=== PATIENT | male | born 1950 | race African-American/Black ===

== ENCOUNTER 2017-02-16 16:00 | Emergency (ER) | payer OTHER ==
[~2017-02-16] VITALS: Ht 182.9 cm; Wt 113.4 kg
--- NOTE | 2017-02-16 16:09 | Emergency Room Report ---
History of Present Illness General Chief Complaint: General Complaint Source: Patient, EMS Present Illness HPI Patient is a 66-year-old male who presented after increased chest pain and shortness of breath. Patient had prior history of COPD. Patient stated that he been having gradual onset of shortness of breath over the past 2 months. Patient reportedly had been hospitalized about beginning of the year after similar symptoms. The patient denied any anticoagulant use. Patient states that he is been having gradual onset of symptoms which were worse with supine position. Patient states it is having some chest tightness. Patient takes rescue inhalers for COPD. Patient reported having increased leg swelling for the past 3 days. Allergies: Coded Allergies: VARGHESE INHIBITORS (Verified Allergy, Unknown, 02/16/17) PENICILLINS (Verified Allergy, Unknown, 02/16/17) [id number] REDUCTASE INHIBITOR (Verified Allergy, Unknown, 02/16/17) Patient History Past Medical History: see triage record Reviewed Nursing Documentation: PMH: Agreed, PSxH: Agreed Nursing Documentation-PMH Past Medical History: No History, Except For Hx COPD: Yes Review of Systems All Other Systems: negative except mentioned in HPI Physical Exam Vital Signs Date Time Temp Pulse Resp B/P Pulse Ox O2 Delivery O2 Flow Rate FiO2 02/16/17 15:56 98.2 110 22 133/87 100 Room Air Sp02 EP Interpretation: reviewed, normal General Appearance: normal inspection, well appearing, no apparent distress, alert, GCS 15 Head: atraumatic ENT: normal ENT inspection, hearing grossly normal, normal voice Neck: normal inspection, full range of motion, supple, no bony tend Respiratory: normal inspection, lungs clear, normal breath sounds, no respiratory distress, no retraction, no wheezing Cardiovascular #1: regular rate, rhythm, no edema Gastrointestinal: normal inspection, normal bowel sounds, non tender, soft, no guarding, no hernia Genitourinary: no CVA tenderness Musculoskeletal: normal inspection, back normal, normal range of motion Neurologic: normal inspection, alert, oriented x3, responsive, watch repairer III-XII nml as tested, speech normal Psychiatric: normal inspection, judgement/insight normal, mood/affect normal Skin: normal inspection, normal color, no rash Medical Decision Making Diagnostic Impression: Primary Impression: COPD exacerbation Additional Impressions: Cardiac arrhythmia Pedal edema ER Course Patient presented for chest pain. Differential diagnosis included but was not limited to acute coronary syndrome, pulmonary embolism, pneumonia, aortic dissection, shingles, pneumothorax, aortic dissection, esophageal Rupture, pericarditis. Because of complexity of patient's case laboratory testing and imaging studies were ordered.Patient was given IV Lasix. Patient was noted to have some initial EKG changes consistent with multifocal atrial tachycardia patient noted have a regular rhythm with a rate of 109.Patient given breathing treatment. Patient was discussed with Dr. Lucas for O and he agreed to accept the patient as a transfer. Labs Test 02/16/17 17:05 White Blood Count 7.8 K/UL (4.8-10.8) Red Blood Count 4.38 M/UL (4.70-6.10) Hemoglobin 14.4 G/DL (14.2-18.0) Hematocrit 42.3 % (42.0-52.0) Mean Corpuscular Volume 96 FL (80-99) Mean Corpuscular Hemoglobin 32.9 PG (27.0-31.0) Mean Corpuscular Hemoglobin Concent 34.1 G/DL (32.0-36.0) Red Cell Distribution Width 13.4 % (11.6-14.8) Platelet Count 193 K/UL (150-450) Mean Platelet Volume 6.5 FL (6.5-10.1) Neutrophils (%) (Auto) 59.1 % (45.0-75.0) Lymphocytes (%) (Auto) 30.7 % (20.0-45.0) Monocytes (%) (Auto) 6.1 % (1.0-10.0) Eosinophils (%) (Auto) 2.4 % (0.0-3.0) Basophils (%) (Auto) 1.6 % (0.0-2.0) Prothrombin Time 10.0 SEC (9.30-11.50) Prothromb Time International Ratio 1.0 (0.9-1.1) Activated Partial Thromboplast Time 26 SEC (23-33) Sodium Level 141 mEQ/L (135-145) Potassium Level 4.4 mEQ/L (3.4-4.9) Chloride Level 99 mEQ/L (98-107) Carbon Dioxide Level 22 mEQ/L (20-30) Anion Gap 20 (5-15) Blood Urea Nitrogen 12 mg/dL (7-23) Creatinine 1.3 mg/dL (0.7-1.2) Estimat Glomerular Filtration Rate 55.1 mL/min (>60) Glucose Level 88 mg/dL (74-106) Calcium Level 9.4 mg/dL (8.6-10.2) Total Bilirubin 0.4 mg/dL (0.0-1.2) Aspartate Amino Transf (AST/SGOT) 29 U/L (5-40) Alanine Aminotransferase (ALT/SGPT) 28 U/L (3-41) Alkaline Phosphatase 73 U/L (40-129) Total Creatine Kinase 719 U/L (38-174) Creatine Kinase MB 5.2 ng/mL (< 6.7) Creatine Kinase MB Relative Index 0.7 Troponin I < 0.30 ng/mL (<=0.30) Pro-B-Type Natriuretic Peptide 148 pg/mL (0-125) Total Protein 7.5 g/dL (6.6-8.7) Albumin 4.5 g/dL (3.5-5.2) Globulin 3.0 g/dL Albumin/Globulin Ratio 1.5 (1.0-2.7) EKG Diagnostic Results Rate: normal Rhythm: NSR ST Segments: no acute changes ASA given to the pt in ED: Yes Rhythm Strip Diag. Results EP Interpretation: yes Rhythm: no PVC's, no ectopy, other - multifocal atrial tachycardia Chest X-Ray Diagnostic Results EP Interpretation: Yes Findings: no consolidation, no effusion, no pneumothorax, no acute cardiopulmonary disease Number of Views: 1 Last Vital Signs Date Time Temp Pulse Resp B/P Pulse Ox O2 Delivery O2 Flow Rate FiO2 02/16/17 15:56 98.2 110 22 133/87 100 Room Air Status: unchanged Disposition: ADMITTED INPATIENT Condition: Francisco Watson Feb 16, 2017 16:09
[2017-02-16] MEDS ORDERED: Aspirin Baby 81mg ORAL ONE (16:15)
[2017-02-16] MEDS: Diltiazem 25mg/5ml IV ONE ×2 (16:15→17:46)
[2017-02-16 16:30] VITALS: BP 125/62
[2017-02-16 17:19] LABS: BASOPHILS % (AUTO) 1.6 % (0.0-2.0); EOSINOPHILS % (AUTO) 2.4 % (0.0-3.0); LYMPHOCYTES % (AUTO) 30.7 % (20.0-45.0); MEAN CORPUSCULAR HEMOGLOBIN 32.9 PG (27.0-31.0); MEAN CORPUSCULAR HGB CONC 34.1 G/DL (32.0-36.0); MEAN CORPUSCULAR VOLUME 96 FL (80-99); MEAN PLATELET VOLUME 6.5 FL (6.5-10.1); MONOCYTES % (AUTO) 6.1 % (1.0-10.0); NEUTROPHILS % (AUTO) 59.1 % (45.0-75.0); PLATELET COUNT 193 K/UL (150-450); RED BLOOD COUNT 4.38 M/UL (4.70-6.10); RED CELL DISTRIBUTION WIDTH 13.4 % (11.6-14.8); WHITE BLOOD COUNT 7.8 K/UL (4.8-10.8)
[2017-02-16 17:41] LABS: TROPONIN I < 0.30 ng/mL (<=0.30)
[2017-02-16 17:54] LABS: ALBUMIN/GLOBULIN RATIO 1.5 (1.0-2.7); CALCIUM 9.4 mg/dL (8.6-10.2); CKMB 5.2 ng/mL (< 6.7); CREATININE 1.3 mg/dL (0.7-1.2); GLOMERULAR FILTRATION RATE 55.1 mL/min (>60); POTASSIUM 4.4 mEQ/L (3.4-4.9); TOTAL PROTEIN 7.5 g/dL (6.6-8.7)
[2017-02-16 18:27] VITALS: BP 121/79
[2017-02-16] MEDS ORDERED: Solu-MEDROL 125mg Inj IVP ONE (19:30)
[2017-02-16 20:38] VITALS: BP 114/75
[2017-02-16 22:08] VITALS: BP 130/92
[2017-02-16 22:10] VITALS: BP 130/92
--- NOTE | 2017-02-17 12:22 | Diagnostic Imaging Report ---
Indication: SOB Technique: One view of the chest Comparison: none Findings: Heart is borderline enlarged. Lungs and pleural spaces are clear. Aorta is tortuous Impression: Borderline cardiomegaly No acute process
--- NOTE | 2017-02-18 16:18 | Cardiology Report ---
APPROVED REPORT EKG Measurement Heart [id number] Fib. Nonspecific [address] abnormality Abnormal QRS-T angle, consider primary T wave abnormality Abnormal ECG
== END 2017-02-16 22:10 | disposition short-term general hospital (02) ==
LOC: EDBD 16:00 → EMR 16:21
DX: J44.1 Chronic obstructive pulmonary disease with (acute) exacerbation (principal); I49.9 Cardiac arrhythmia, unspecified; R60.9 Edema, unspecified; R07.9 Chest pain, unspecified; Z88.2 Allergy status to sulfonamides; Z88.8 Allergy status to other drugs, medicaments and biological substances; I47.1 Supraventricular tachycardia
CPT/HCPCS: 36415; 71010; 80053; 82550; 82553; 83880; 84484; 85025; 85610; 85730; 93005; 96374; 96375; 99285; J1940; J2930